=== PATIENT | female | born 2000 | race Caucasian/White ===

== ENCOUNTER 2022-07-08 09:27 | Emergency (ER) | payer MEDICAID ==
[~2022-07-08] VITALS: Ht 167.6 cm; Wt 58.0 kg
[2022-07-08 09:34] VITALS: BP 111/69
[2022-07-08] MEDS ORDERED: FAMOTIDINE 20MG TABLET PO ONE (10:00)
[2022-07-08] MEDS ORDERED: ONDANSETRON 4MG ODT PO ONE (10:00)
[2022-07-08] MEDS ORDERED: MAGNESIUM/ALUMINUM HYDROXIDE/SIMETHICONE 30ML UDC PO ONE (10:00)
== END 2022-07-08 10:42 | disposition home or self-care (01) ==
LOC: ER 09:27
DX: Z04.89 Encounter for examination and observation for other specified reasons (principal)
CPT/HCPCS: 99281; Q0162